=== PATIENT | female | born 1995 | race Caucasian/White ===

== ENCOUNTER 2016-10-25 18:11 | Emergency (ER) | payer OTHER, MEDICAID ==
[2016-10-25 18:53] LABS: URINE BILIRUBIN NEGATIVE (NEGATIVE); URINE BLOOD NEGATIVE (NEGATIVE); URINE GLUCOSE (UA) NEGATIVE (NEGATIVE); URINE LEUKOCYTE ESTERASE NEGATIVE (NEGATIVE); URINE NITRITE NEGATIVE (NEGATIVE); URINE PROTEIN NEGATIVE (NEGATIVE); URINE UROBILINOGEN NORMAL (0-1 mg/dl)
[2016-10-25 18:59] LABS: URINE APPEARANCE CLEAR; URINE COLOR YELLOW
[2016-10-25 19:06] LABS: HCG,QUALITATIVE URINE NEGATIVE
[2016-10-25 19:19] LABS: ABSOLUTE NEUTROPHIL COUNT 4.5 K/mm3 (1.8-7.7); BASO # 0.1 K/mm3 (0.0-0.2); BASO % 0.7 % (0.2-1.0); EOS # 0.1 (0.0-0.5); EOS % 0.9 % (0.9-2.9); HEMATOCRIT 42.2 % (37.0-47.0); HEMOGLOBIN 14.2 gm/l (12.0-16.0); IMM NEUT% 0.1 % (0-1); LYMPH # 2.5 (1.0-4.8); LYMPH % 33.3 % (15-45); MEAN CELL VOLUME 88.1 fl (81.0-99.0); MEAN CORPUSCULAR HEMOGLOBIN 29.6 pg (27.0-31.0); MEAN CORPUSCULAR HGB CONC 33.6 g/dl (33.0-37.0); MEAN PLATELET VOLUME 10.5 fl (7.4-10.4); MONO # 0.3 (0.0-0.8); MONO % 4.1 % (4-12); NEUT % 60.9 % (43-75); PLATELET COUNT 295 K/mm3 (130-400); RED CELL DISTRIBUTION WIDTH 12.3 % (11.5-14.5)
[2016-10-25 19:50] LABS: ALB/GLOB RATIO 1.4 (>1.0); ALBUMIN 4.1 gm/dL (3.5-5.7); CALCIUM 9.1 mg/dL (8.6-10.3)
--- NOTE | 2016-10-25 20:59 | US ---
PELVIC COMPLETE, TRANSVAGINAL ECHOGRAPHY COMPARISON: None. HISTORY: Right lower quadrant pain for 4 days, with nausea. LMP 10/14/2016. Negative beta-hCG. Technique: Transabdominal and transvaginal. FINDINGS: Uterus: 7.9 x 3.9 x 4.9 cm. Normal. Endometrium: 4.6 mm. Normal. The. Right ovary: 2.9 x 2.0 x 2.7 cm. Volume 8.4 mCi normal blood flow. Left ovary: 3.3 x 1.9 x 3.5 cm. Volume 11.3 mL. Normal blood flow. Adnexa mass: None Fluid: Minimal IMPRESSION: 1. Normal study. Normal ovaries. Minimal free fluid in the cul-de-sac. The report was sent to the emergency department electronic medical record system, 10/25/2016 at 20:59
== END 2016-10-25 21:27 | disposition home or self-care (01) ==
LOC: ED 18:11
DX: S39.011A Strain of muscle, fascia and tendon of abdomen, initial encounter (principal); X58.XXXA Exposure to other specified factors, initial encounter; Y92.9 Unspecified place or not applicable